=== PATIENT | male | born 1955 | race Caucasian/White ===

== ENCOUNTER 2017-09-30 06:23 | Day surgery (SDC) | payer OTHER ==
--- NOTE | 2017-09-27 14:43 | HP ---
Amended report to enter co-signing physician. PREOPERATIVE HISTORY AND PHYSICAL EXAM: DATE OF SURGERY/ADMISSION: 09/30/17 DATE OF OFFICE VISIT/ENCOUNTER: 09/21/17 ATTENDING SURGEON: Sharda Logan MD* (dictated by SOFÍA Jesus). PROCEDURE: Right wrist carpal tunnel release. CHIEF COMPLAINT: Bilateral hand numbness and tingling, right worse than left. HISTORY OF PRESENT ILLNESS: This is a 62-year-old male who complains of bilateral numbness and tingling in his hands. He has had this problem for a couple of months. He does not recall an injury. He says all of his fingers are numb. His right hand is worse than his left. He has diabetes. He was diagnosed couple of years ago with diabetes and it is well controlled. He recently saw his primary care doctor who referred him for nerve conduction study , which showed bilateral severe carpal tunnel syndrome as well as ulnar neuropathy on the right at the elbow. He has significant problems at night time with symptoms. He is interested in pursuing surgical intervention at this time in the form of a right wrist carpal tunnel release and an ulnar nerve decompression at the elbow. PAST MEDICAL HISTORY: 1. Hypertension. 2. Hypercholesterolemia. 3. Diabetes mellitus 2. PAST SURGICAL HISTORY: 1. Hernia repair. 2. Left total hip arthroplasty, 1977. CURRENT MEDICATIONS: 1. Aspirin 81 mg daily. 2. Atorvastatin calcium 40 mg daily. 3. Januvia 100 mg daily. 4. Lisinopril/hydrochlorothiazide 10/12.5 mg daily. 5. Metoprolol tartrate 25 mg daily. 6. Vitamin B12 daily. ALLERGIES: No known drug allergies. FAMILY MEDICAL HISTORY: Noncontributory. SOCIAL HISTORY: The patient is currently in the process of retiring from a [employer]. He is also a musician. He is a former smoker of cigars. He is not currently smoking. He denies recreational drug use. He drinks alcohol on rare occasion. REVIEW OF SYSTEMS: General: Negative for fevers, chills, night sweats, unexplained weight loss/gain. No known anesthesia problems. HEENT: Negative for headache, lightheadedness, syncopal episodes, visual changes. Integumentary : Negative for abrasions, lesions or open wounds. Cardiothoracic: Negative for hypertension, chest pain, palpitations, edema. Respiratory: Negative for shortness of breath with exertion, chronic cough, wheezing. GI: Negative for nausea, vomiting, diarrhea, constipation, GERD. : Negative for nocturia, urinary frequency, urgency, history of UTIs and kidney problems. Musculoskeletal : Positive for current complaint. Neurologic: Positive for numbness and tingling bilateral hand. Negative for history of seizure, stroke, poor balance. Endocrine: Positive for diabetes type 2. Negative for thyroid issues. Hematologic: Negative for easy bruising, anemia, bleeding disorders, history of DVT. Infectious Disease: Negative for history of MRSA, hepatitis C, HIV. PHYSICAL EXAMINATION GENERAL: Well-developed, well-nourished 62-year-old male, in no acute distress. VITAL SIGNS: Height 6 feet tall, weight 210 pounds, blood pressure 130/80. HEENT: Normocephalic, atraumatic. Pupils are equal, round and reactive to light and accommodation. Extraocular movements are intact. NECK: Supple. No palpable lymph nodes. Throat is clear. PULMONARY: Lungs are clear to auscultation bilaterally. No wheezes, rales or rhonchi. CARDIOVASCULAR: Regular rate and rhythm. S1, S2. No murmurs, rubs or gallops. No edema. ABDOMEN: Positive bowel sounds, soft and nontender. NEUROLOGIC: Alert and oriented x3. Cranial nerves II through XII are intact. Sensation is intact to light touch. MUSCULOSKELETAL: On exam of bilateral hands, he has minimal thenar wasting. He has some weakness with some abduction. No interosseous wasting. He has good finger abduction, but he has decreased sensation in all of his fingers in both hands. He has a negative Tinel's sign at the ulnar nerve at the elbow and the wrist. Negative Tinel's sign at the median nerve at the wrist. IMAGING STUDIES: EMG nerve conduction study shows bilateral severe carpal tunnel syndrome and ulnar neuropathy on the right. IMPRESSION: 1. Bilateral carpal tunnel syndrome. 2. Ulnar neuropathy on the right. PLAN/RECOMMENDATIONS: The patient is scheduled to undergo a right wrist carpal tunnel release and ulnar nerve decompression at the elbow with Dr. Logan on 09/12. He will return to the office 10 days postop for followup and suture removal. A prescription for [place] was e-scribed to patient's pharmacy for postoperative pain management. SOFÍA JESUS [id number]/[facility] #: [id number] TOBY
[~2017-09-30 06:23] MED LIST: Buffered Lidocaine 0.9% SYRIN* 5 ML/SYR SYRINGE INTRADERM ONE
[2017-09-30] MEDS ORDERED: ceFAZolin 2 GM PREMIX (*) 2 GM/50 ML BAG IVPB ONE (06:28)
[2017-09-30] MEDS ORDERED: fentaNYL* 50 MCG/ML 2 ML VIAL (100 MCG VIAL) ONE (07:08)
[2017-09-30] MEDS ORDERED: Midazolam* 1 MG/ML 2 ML VIAL (2 MG) ONE (07:08)
[2017-09-30] MEDS ORDERED: Dextrose 50% Syringe 50 ML* 25 GM/50 ML SYRINGE IV PUSH PRN (07:13)
[2017-09-30] MEDS ORDERED: Insulin LISPRO* 1 UNITS UNIT SUBCUT ONE ×2 (07:13→07:16)
[2017-09-30] MEDS ORDERED: Lidocaine 1%* 5 ML VIAL ONE (07:13)
[2017-09-30] MEDS ORDERED: Bupivacaine 0.5%* 50 ML VIAL ONE (07:37)
[2017-09-30] MEDS ORDERED: Propofol* 10 MG/ML 20 ML BTL IV PUSH ONE (07:50)
[2017-09-30] MEDS ORDERED: Naloxone* 0.4 MG/ML 1 ML VIAL IV PRN (08:19)
[2017-09-30 08:37] VITALS: BP 127/71
--- NOTE | 2017-09-30 22:06 | OP ---
DATE OF OPERATION: 09/30/17 - [facility] DATE OF : 51 SURGEON: Sharda Logan MD NAVIGATING OFFICER: SOFÍA Jesus ANESTHESIA: Local MAC. PRE-OP DIAGNOSES: 1. Right carpal tunnel syndrome. 2. Cubital tunnel syndrome. POST-OP DIAGNOSES: 1. Right carpal tunnel syndrome. 2. Cubital tunnel syndrome. OPERATIVE PROCEDURE: Right carpal tunnel release and right ulnar nerve decompression at the elbow. ESTIMATED BLOOD LOSS: Zero. TOURNIQUET TIME: About 25 minutes. INDICATIONS FOR PROCEDURE: Franki is a 62-year-old man with numbness and tingling in his right hand. Nerve conduction study is consistent with an ulnar nerve compression of the right elbow and a median nerve compression of the right wrist. He presents for decompression of both nerves. DESCRIPTION OF PROCEDURE: The patient was brought to the operating room, was given a sedation anesthetic and a local infiltration of 10 mL of 1% plain lidocaine at the right hand and 0.5% plain Marcaine, total of 20 mL at the right elbow. The skin of his right upper extremity was prepped and draped in the usual sterile fashion. The hand and forearm were exsanguinated and the tourniquet elevated to 250 mmHg. A longitudinal incision was made in the palm in line with the ring finger. We dissected sharply through the subcutaneous tissue down to the transverse carpal ligament. The ligament was divided sharply with the knife and then more proximally with the scissors. The nerve was dissected free from the surrounding tissue and there was an area of significant compression at the mid portion of the ligament. The wound was irrigated and the skin edges were reapproximated with 4-0 nylon suture. Next, a curvilinear incision was made centered between the medial epicondyle and the tip of the olecranon process. We dissected sharply through the subcutaneous tissue down to the ulnar nerve just proximal to the cubital tunnel. The nerve root dissected out through the cubital tunnel and then the deep and superficial portion of the FCU fascia was completely divided. The nerve was then dissected out proximally for several centimeters completely releasing the nerve, which was little bit swollen just proximal to the cubital tunnel. The medial intermuscular septum was then divided. The wound was irrigated and the subcutaneous tissue closed with 3-0 Polysorb and the skin with skin maximino. The wounds were dressed with Xeroform, 4x4, Webril, and an Hardik wrap. The patient tolerated the procedure well, was brought to the recovery room in good condition. [id number]/[facility] #: [id number] TOBY
== END 2017-09-30 09:00 | disposition home or self-care (01) ==
LOC: OREAST 06:23
PROVIDERS: ATTEND Orthopaedic Surgery
DX: G56.01 Carpal tunnel syndrome, right upper limb (principal); G56.21 Lesion of ulnar nerve, right upper limb; E11.9 Type 2 diabetes mellitus without complications; Z79.84 Long term (current) use of oral hypoglycemic drugs; Z87.891 Personal history of nicotine dependence; M25.50 Pain in unspecified joint; M54.9 Dorsalgia, unspecified
CPT/HCPCS: J0690; J2250; J2704; J3010

== ENCOUNTER 2017-10-08 19:46 | Emergency (ER) | payer OTHER ==
--- OUTSIDE RECORDS SUMMARY | 2017-10-08 19:52 | XMS REPORT ---
:1955 External Reference #:[id number] Author Organization [facility] Address [address] [place] [address] [place] [address] Phone [phone] Care Team Providers Name Role Phone Sushil Meyer DO Primary Care Physician Unavailable Payers Type Date Identification Numbers Payment Provider Subscriber Commercial Policy Number: [id number] [employer] Franki Underwood PayID: [id number] [id number] [place] [address] Problems Description No Information Family History Date Family Member(s) Problem(s) Comments General Cancer General Diabetes General Heart Disease General Hypertension General Rheumatoid Arthritis Social History Type Date Description Comments Lives With Girlfriend Occupation Currently Working ETOH Use Denies alcohol use Smoking Patient has never smoked Allergies, Adverse Reactions, Alerts Date Description Reaction Status Severity Comments 09/21/2017 NKDA active Medications Medication Date Status Form Strength Qnty SIG Indications Ordering Provider Ronni Active Tablets 5-325mg 15tabs one tab Sharda 018 by christine Logan M.D. every 4-6 hours as needed pain. Do not use until after surgery. Januvia Active Tablets 100mg 1 by Unknown 000 mouth every day Vitamin B 12 Active Unknown 000 Atorvastatin 0 Active Tablets 40mg 1 by Unknown Calcium 000 mouth every day Lisinopril-Hydr Active Tablets 10-12.5mg 1 by Unknown ochlorothiazide 000 mouth every day Aspirin Adult Active Tablets 81mg 1 by Unknown Low Dose 000 DR mouth every day Metoprolol 00/00/0 Active Tablets 25mg 1 by Unknown Tartrate 000 mouth twice a day Vital Signs Date Vital Result Comment 09/21/2017 Height 72 inches 6'0" Weight 210.00 lb BP Systolic 130 mmHg BP Diastolic 80 mmHg Respiratory Rate 18 /min Body Temperature 98.3 F Pain Level 0 numbness BMI (Body Mass Index) 28.5 kg/m2 Results Description No Information Procedures Date CPT Code Description Status 08/30/2017 98712 Nerve Conduction 13+ Studies Completed 08/30/2017 09777 Needle Electromyography Complete, Five Or More Muscles Completed Studied Plan of Care Future Appointment(s):10/12/2017 10:00 am - AARTI Jesus at [facility].09/30/2017 8:30 am - Sharda Logan M.D. at [facility].09/21/2017 - Sharda Logan M.D.G56.03 Carpal tunnel syndrome, bilateral upper limbsFollow up:Follow up: 9-10 days [id number] Lesion of ulnar nerve, unspecified upper limb
[2017-10-08 19:54] VITALS: BP 131/83
--- NOTE | 2017-10-08 20:17 | UC ---
General HPI - HPI Summary HPI Summary: This patient is a 62 year old M presenting to [facility] with a chief complaint of difficulty breathing for the past two days. Patient reports sore throat, headaches, clear rhinorrhea, and nasal congestion. He states he feels hot but denies recent fever. Patient denies wheezing, ear pain, LE edema, and lower extremity pain. Recent sx for nerve impingement and carpal tunnel on 09/30/17. - History of Current Complaint Chief Complaint: UCRespiratory Stated Complaint: FEVER,TROUBLE BREAHTING, BLURRED VISION Time Seen by Provider: 10/08/17 20:01 Hx Obtained From: Patient Onset/Duration: Lasting Days Timing: Constant Pain Intensity: 0 Pain Location at: headache, sore throat Associated Signs & Symptoms: Positive: Headache, SOB, Other - sore throat, nasal congestion, no ear pain. Negative: Edema, Fever, Wheezing - Allergy/Home Medications Allergies/Adverse Reactions: Allergies Allergy/AdvReac Type Severity Reaction Status Date / Time No Known Allergies Allergy Verified 10/08/17 19:54 Home Medications: Home Medications Atorvastatin* [Lipitor*] 40 mg PO DAILY 10/08/17 [History Confirmed 10/08/17] Lisinopril/HCTZ 20/25(NF) [Zestoretic 20/25(NF)] 1 tab PO DAILY 10/08/17 [ History Confirmed 10/08/17] PMH/Surg Hx/FS Hx/Imm Hx Previously Healthy: Yes - Surgical History Surgical History: Yes Surgery Procedure, Year, and Place: 1980s hernia, [facility] [place]. 1977, left hip replacement , [facility] [place]. 09/30/2017 - carpal tunnel repair - Family History Known Family History: Positive: Hypertension - Social History Alcohol Use: Occasionally Alcohol Amount: 1-2 per week Substance Use Type: None Smoking Status (MU): Former Smoker Amount Used/How Often: 4-5 cigars per day When Did the Patient Quit Smoking/Using Tobacco: 5 yrs ago Review of Systems Constitutional: Negative ENT: Negative - ear pain, Sore Throat, Nasal Discharge, Sinus Congestion Respiratory: Negative - wheezing, Shortness Of Breath Musculoskeletal: Negative - pain or edema All Other Systems Reviewed And Are Negative: Yes Physical Exam - Summary Physical Exam Summary: General: well-appearing, no pain distress Skin: warm, color reflects adequate perfusion, dry Head: normal Eyes: EOMI, NIYAH ENT: Rhinorrhea Neck: supple, nontender Respiratory: CTA, breath sounds present Cardiovascular: Tachycardia, regular rhythm Abdomen: soft, nontender Bowel: present Musculoskeletal: strength/ROM intact right arm bandaged R Upper inner arm non tender, good cap refill in both hands Neurological: sensory/motor intact, A&O x3 Psychological: affect/mood appropriate Triage Information Reviewed: Yes Vital Signs: Initial Vital Signs Temp 97 F 10/08/17 19:51 Pulse 104 10/08/17 19:51 Resp 20 10/08/17 19:51 BP 131/83 10/08/17 19:51 Pulse Ox 98 10/08/17 19:51 Vital Signs Reviewed: Yes Diagnostics - Radiology CXR Radiology Interpretation Completed By: Radiologist - No radiographic evidence of acute cardiopulmonary disease. Dr. Dumont has reviewed this report. Course/Dx - Course Course Of Treatment: DISCUSSED TO HAVE A FULL EVALUATION TO INCLUDE EVALUATION FOR PULMONARY EMBOLIS, HE NEEDS TO GO TO THE EMERGENCY DEPARTMENT; THE PATIENT DECLINED GOING TO THE EMERGENCY DEPARTMENT. HE DOES AGREE TO STARTING AN ANTIBIOTIC AND GETTING RECHECKED IF WORSE. - Differential Dx - Multi-Symptom Provider Diagnoses: SHORTNESS OF BREATH. PHARYNGITIS Discharge - Sign-Out/Discharge Documenting (check all that apply): Patient Departure - Discharge Plan Condition: Stable Disposition: HOME Prescriptions: Amoxicillin/Clavulanate TAB* [Augmentin TAB 875*] 875 mg PO BID #19 tab Patient Education Materials: Pharyngitis (ED), Shortness of Breath (ED) Referrals: Sushil Meyer DO [Primary Care Provider] - Additional Instructions: FOLLOW UP WITH YOUR DOCTOR. GO TO THE EMERGENCY DEPARTMENT FOR ANY WORSENING OF YOUR CONDITION OR QUESTIONS OR CONCERNS. - Billing Disposition and Condition Condition: STABLE Disposition: Home
--- NOTE | 2017-10-08 20:51 | RAD ---
INDICATION: Shortness of breath. COMPARISON: None TECHNIQUE: PA and lateral views of the chest were obtained. FINDINGS: The heart and mediastinum are normal in size and contour. The lungs are grossly clear. There is no evidence of large pleural effusion. Degenerative changes of the thoracic spine include loss of intervertebral disc height and marginal osteophyte formation. There is no radiographic evidence of free air beneath the diaphragm IMPRESSION: No radiographic evidence of acute cardiopulmonary disease.
[2017-10-08] MEDS ORDERED: Amoxicillin/Clavulanate TAB* 875 MG PO ONE (21:10)
== END 2017-10-08 21:30 | disposition home or self-care (01) ==
LOC: UCEAST 19:46
DX: R06.02 Shortness of breath (principal); J02.9 Acute pharyngitis, unspecified; R51 Headache; R09.81 Nasal congestion; Z96.642 Presence of left artificial hip joint; Z82.49 Family history of ischemic heart disease and other diseases of the circulatory system; Z87.891 Personal history of nicotine dependence
CPT/HCPCS: 71046; 99212; A9270-GY; G0463